=== PATIENT | female | born 1990 | race Caucasian/White ===

== ENCOUNTER 2017-01-18 18:47 | Inpatient (IN) | payer OTHER ==
[~2017-01-18] VITALS: Ht 172.7 cm; Wt 73.6 kg
[2017-01-18] MEDS ORDERED: ONDANSETRON 2MG/ML, 2ML ONE (19:40)
[2017-01-18] MEDS ORDERED: HYDROmorphone 1 MG/ML, 1ML ONE ×2 (19:40→21:28)
[2017-01-18] MEDS ORDERED: FAMOTIDINE 20 MG/2 ML ONE (19:40)
[2017-01-18] MEDS: HYDROmorphone 1 MG/ML, 1ML IVPush PRN ×2 (19:50→21:49)
[2017-01-18] MEDS ORDERED: LEVO88TA2 PO (19:56)
[2017-01-18] MEDS ORDERED: ONDANSETRON 2MG/ML, 2ML IVPush ONE (20:00)
[2017-01-18] MEDS ORDERED: SODIUM CHLORIDE FLUSH 10ML SYR IVF ONE (20:00)
[2017-01-18] MEDS ORDERED: SODIUM CHLORIDE 0.9% 1,000ML IVBOLUS ONE ×2 (20:00→21:30)
[2017-01-18] MEDS ORDERED: FAMOTIDINE 20 MG/2 ML IVP ONE (20:00)
[2017-01-18 20:13] LABS: HEMATOCRIT 44.9 % (34.6-47.8); HEMOGLOBIN 15.3 g/dL (11.7-16.4); WHITE BLOOD COUNT 18.9 x10^3/uL (3.4-10)
[2017-01-18 20:23] LABS: ASPARTATE AMINO TRANSFERASE 12 U/L (15-37); BLOOD UREA NITROGEN 5 mg/dL (7-18)
[2017-01-18 20:56] LABS: IS PT STATUS REG ER OR PRE ER? YES
[2017-01-18] MEDS ORDERED: CEFTRIAXONE PMX 1GM/50ML 50 ML IVPB ONE (21:00)
[2017-01-18] MEDS ORDERED: AZITHROMYCIN 500 MG in SODIUM CHLORIDE 0.9% 250 ML IVPB ONE (21:00)
[2017-01-18] MEDS ORDERED: CEFTRIAXONE PMX 1GM/50ML 50 ML ONE (21:28)
[2017-01-18] MEDS ORDERED: SODIUM CHLORIDE FLUSH 10ML SYR IVF PRN (23:00)
[2017-01-19] MEDS ORDERED: LABETALOL 5MG/ML, 20ML IVPush PRN
[2017-01-19] MEDS ORDERED: TEMAZEPAM 15 MG CAPSULE PO PRN
[2017-01-19] MEDS ORDERED: POTASSIUM CHLORIDE 20 MEQ TAB.ER.PRT PO ONE
[2017-01-19] MEDS: HYDROmorphone 2 MG/ML, 1ML IVPush PRN ×3 (01:34→20:34)
[2017-01-19 02:30] VITALS: BP 111/72
[2017-01-19] MEDS: FAMOTIDINE 20 MG/2 ML IVPush SCH ×3 (02:39→20:13)
[2017-01-19] MEDS: D5%-0.45NACL+KCL 20MEQ 1,000 ML IV SCH ×3 (02:39→21:22)
[2017-01-19] MEDS: CEFOTETAN PMX 2GM/50ML 50 ML IV SCH ×2 (02:42→15:16)
[2017-01-19] MEDS ORDERED: OMNIPAQUE 350 MG/ML, 100ML BOTTLE ONE (04:46)
[2017-01-19] MEDS: LEVOTHYROXINE 88 MCG TABLET PO SCH (05:29)
[2017-01-19 07:45] VITALS: BP 102/88
[2017-01-19 07:48] LABS: HEMATOCRIT 36.4 % (34.6-47.8); HEMOGLOBIN 12.6 g/dL (11.7-16.4); WHITE BLOOD COUNT 15.7 x10^3/uL (3.4-10)
[2017-01-19 07:51] LABS: BLOOD UREA NITROGEN 3 mg/dL (7-18)
[2017-01-19] MEDS: ONDANSETRON 2MG/ML, 2ML IVPush PRN ×2 (07:51→21:22)
[2017-01-19 08:03] LABS: ASPARTATE AMINO TRANSFERASE 7 U/L (15-37)
[2017-01-19] MEDS ORDERED: LIDOCAINE 1%, 20ML ONE (09:54)
[2017-01-19 10:40] LABS: CYTOLOGY BODY FLUID RECD INTO PATHOLOGY; CYTOLOGY BODY FLUID SOURCE PLEURAL FLUID
[2017-01-19] MEDS: HYDROcodone/APAP 5/325 TABLET PO PRN ×2 (11:18→18:10)
[2017-01-19 14:15] VITALS: BP 102/67
[2017-01-19 20:00] VITALS: BP 106/66
[2017-01-20 02:30] VITALS: BP 107/69
[2017-01-20] MEDS: CEFOTETAN PMX 2GM/50ML 50 ML IV SCH (03:03)
[2017-01-20] MEDS: LEVOTHYROXINE 88 MCG TABLET PO SCH (05:16)
[2017-01-20 05:36] LABS: HEMATOCRIT 35.5 % (34.6-47.8); HEMOGLOBIN 12.1 g/dL (11.7-16.4); WHITE BLOOD COUNT 9.7 x10^3/uL (3.4-10)
[2017-01-20 05:42] LABS: BLOOD UREA NITROGEN 4 mg/dL (7-18)
[2017-01-20] MEDS: HYDROcodone/APAP 5/325 TABLET PO PRN ×4 (06:09→22:33)
[2017-01-20] MEDS: D5%-0.45NACL+KCL 20MEQ 1,000 ML IV SCH (06:09)
[2017-01-20 07:29] VITALS: BP 111/70
[2017-01-20] MEDS ORDERED: AZITHROMYCIN 500 MG TABLET PO ONE (08:30)
[2017-01-20] MEDS: FAMOTIDINE 20 MG/2 ML IVPush SCH ×2 (08:59→20:31)
[2017-01-20 13:20] VITALS: BP 110/77
[2017-01-20 20:00] VITALS: BP 106/69
[2017-01-21] MEDS: HYDROcodone/APAP 5/325 TABLET PO PRN ×3 (01:24→20:15)
[2017-01-21 02:00] VITALS: BP 107/68
[2017-01-21] MEDS: LEVOTHYROXINE 88 MCG TABLET PO SCH (05:21)
[2017-01-21] MEDS: ONDANSETRON 2MG/ML, 2ML IVPush PRN (06:30)
[2017-01-21] MEDS: FAMOTIDINE 20 MG/2 ML IVPush SCH (07:21)
[2017-01-21] MEDS: AZITHROMYCIN 250 MG TABLET PO SCH (07:22)
[2017-01-21 07:35] VITALS: BP 103/66
[2017-01-21 08:27] LABS: ASPARTATE AMINO TRANSFERASE 13 U/L (15-37); BLOOD UREA NITROGEN 3 mg/dL (7-18)
[2017-01-21 09:05] LABS: HEMOGLOBIN 14.1 g/dL (11.7-16.4); WHITE BLOOD COUNT 13.3 x10^3/uL (3.4-10)
[2017-01-21] MEDS ORDERED: DOCUSATE 100 MG CAPSULE PO PRN (10:00)
[2017-01-21] MEDS: KETOROLAC 30 MG/1 ML IVPush SCH ×3 (10:44→22:47)
[2017-01-21 13:01] VITALS: BP 105/71
[2017-01-21] MEDS: CEFTRIAXONE PMX 1GM/50ML 50 ML IV SCH (17:34)
[2017-01-21] MEDS: SODIUM CHLORIDE 0.9% 1,000 ML IV SCH (17:44)
[2017-01-21 18:30] VITALS: BP 118/73
[2017-01-21] MEDS: FAMOTIDINE 20 MG TABLET PO SCH (20:15)
[2017-01-22 02:30] VITALS: BP 116/78
[2017-01-22] MEDS: SODIUM CHLORIDE 0.9% 1,000 ML IV SCH ×3 (02:33→20:18)
[2017-01-22] MEDS: HYDROcodone/APAP 5/325 TABLET PO PRN (02:34)
[2017-01-22] MEDS: KETOROLAC 30 MG/1 ML IVPush SCH ×4 (04:40→22:40)
[2017-01-22] MEDS: LEVOTHYROXINE 88 MCG TABLET PO SCH (05:22)
[2017-01-22] MEDS: CEFTRIAXONE PMX 1GM/50ML 50 ML IV SCH ×2 (05:22→17:00)
[2017-01-22 05:57] LABS: HEMATOCRIT 40.3 % (34.6-47.8); HEMOGLOBIN 13.7 g/dL (11.7-16.4); WHITE BLOOD COUNT 9.5 x10^3/uL (3.4-10)
[2017-01-22 06:20] LABS: BLOOD UREA NITROGEN 4 mg/dL (7-18)
[2017-01-22 06:49] VITALS: BP 118/79
[2017-01-22 08:21] LABS: TOTAL IRON BINDING CAPACITY 169 mcg/dL (250-450)
[2017-01-22] MEDS: FAMOTIDINE 20 MG TABLET PO SCH ×2 (09:00→20:18)
[2017-01-22] MEDS: AZITHROMYCIN 250 MG TABLET PO SCH (09:00)
[2017-01-22] MEDS ORDERED: ACETAMINOPHEN 325 MG TABLET PO PRN (12:30)
[2017-01-22 13:57] VITALS: BP 116/75
[2017-01-22 19:29] VITALS: BP 129/75
[2017-01-23] MEDS: HYDROcodone/APAP 5/325 TABLET PO PRN (01:40)
[2017-01-23 01:49] VITALS: BP 113/75
[2017-01-23] MEDS: CEFTRIAXONE PMX 1GM/50ML 50 ML IV SCH (05:17)
[2017-01-23] MEDS: SODIUM CHLORIDE 0.9% 1,000 ML IV SCH (05:17)
[2017-01-23] MEDS: KETOROLAC 30 MG/1 ML IVPush SCH (05:17)
[2017-01-23] MEDS: LEVOTHYROXINE 88 MCG TABLET PO SCH (05:18)
[2017-01-23 06:35] VITALS: BP 113/71
[2017-01-23] MEDS ORDERED: IRON SUCROSE COMPLEX 100MG/5ML IV ONE (08:30)
[2017-01-23] MEDS: AZITHROMYCIN 250 MG TABLET PO SCH (09:00)
[2017-01-23] MEDS: FAMOTIDINE 20 MG TABLET PO SCH (09:26)
[2017-01-23 09:42] LABS: HEMATOCRIT 37.6 % (34.6-47.8); HEMOGLOBIN 12.9 g/dL (11.7-16.4); WHITE BLOOD COUNT 9.1 x10^3/uL (3.4-10)
[2017-01-23] MEDS ORDERED: AZIT250T PO (11:08)
[2017-01-23] MEDS ORDERED: CEFD300C37 PO (11:09)
[2017-01-23] MEDS ORDERED: FERR324T8 PO (11:10)
[2017-01-23] MEDS ORDERED: DOCU100C33 PO (11:11)
== END 2017-01-23 11:40 | disposition home or self-care (01) | DRG 444 ==
LOC: ED 23:14 → EDIP 23:39 → 4EST 01-19 01:23 → 4WST 01-21 17:42 → DCLOUNGE 01-23 11:04
PROVIDERS: ADMIT Internal Medicine; ATTEND Internal Medicine
PROC: 0W993ZX Drainage of Right Pleural Cavity, Percutaneous Approach, Diagnostic (ICD-10-PCS; principal; 2017-01-19)
DX: K81.0 Acute cholecystitis (principal); J18.1 Lobar pneumonia, unspecified organism; J90 Pleural effusion, not elsewhere classified; E44.1 Mild protein-calorie malnutrition; N30.90 Cystitis, unspecified without hematuria; E87.6 Hypokalemia; K21.9 Gastro-esophageal reflux disease without esophagitis; D25.9 Leiomyoma of uterus, unspecified; E03.9 Hypothyroidism, unspecified; Z68.24 Body mass index [BMI] 24.0-24.9, adult
CPT/HCPCS: 36415; 71010; 71020; 71275; 74000; 74177; 76700; 80048; 80053; 81001; 83540; 83550; 83605; 83615; 83690; 83735; 83880; 84100; 84145; 84157; 84439; 84443; 84484; 84703; 85025; 87040; 87070; 87086; 87205; 88112; 88305; 89051; 93005; 93306; 96361; 96374; 96375; J0456; J0696; J1170; J1756; J1885; J2405; J3490; Q9967; J3480; J7030; J7050; S0028; S0074

== ENCOUNTER → 2017-04-04 | Outpatient (CLI) | payer OTHER ==
[~2017-04-04] MED LIST: AZIT250T PO; CEFD300C37 PO; DOCU100C33 PO; FERR324T8 PO; GADOBUTROL 7.5 MMOL/7.5 ML PFS ONE; LEVO88TA2 PO
== END | disposition home or self-care (01) ==
LOC: RAD 09:18
PROVIDERS: ATTEND Nurse Practitioner Primary Care
DX: K76.89 Other specified diseases of liver (principal); R41.3 Other amnesia; R10.0 Acute abdomen; I48.91 Unspecified atrial fibrillation; I49.1 Atrial premature depolarization
CPT/HCPCS: 70553; 78227; A9537; A9585